=== PATIENT | female | born 1945 | race Caucasian/White ===

== ENCOUNTER 2024-01-24 10:34 | Emergency (ER) | payer BC, MEDICARE ==
[2024-01-24 10:47] LABS: Glucose,Whole Blood 145 mg/dL (70-110)
--- NOTE | 2024-01-24 10:48 | ED ---
General Adult HPI - General Chief complaint: Altered Mental Status Stated complaint: Unresponsive Time Seen by Provider: 01/24/24 10:37 Source: EMS, RN notes reviewed Mode of arrival: EMS Limitations: altered mental status, physical limitation - History of Present Illness Initial comments: Patient is a 78-year-old female presenting to the emergency department with concern for change in mental status. History is limited. Patient is nonverbal. Patient reportedly last known well around 8 AM. Unclear if there was a witnessed event. Patient does have history of atrial fibrillation and is on Eliquis - Related Data Home Medications Medication Instructions Recorded Confirmed Albuterol Inhaler [Ventolin Hfa 1 - 2 puff INHALATION RT-Q4H PRN 01/24/24 01/24/24 Inhaler] Apixaban [Eliquis] 5 mg PO BID 01/24/24 01/24/24 Aspirin EC [Ecotrin Low Dose] 81 mg PO DAILY 01/24/24 01/24/24 Cholecalciferol (Vitamin D3) 100 mcg PO DAILY 01/24/24 01/24/24 [Vitamin D3 (50 Mcg = 2000 Iu)] Famotidine [Pepcid] 20 mg PO DAILY 01/24/24 01/24/24 Levothyroxine Sodium [Synthroid] 175 mcg PO SUTUWETHSA 01/24/24 01/24/24 Levothyroxine Sodium [Synthroid] 350 mcg PO MOFR 01/24/24 01/24/24 Magnesium Oxide [Magox 400] 400 mg PO BID 01/24/24 01/24/24 Melatonin 6 mg PO HS 01/24/24 01/24/24 Potassium Chloride [Klor-Con 20 60 meq PO DAILY 01/24/24 01/24/24 Packets] Rosuvastatin [Crestor] 20 mg PO HS 01/24/24 01/24/24 Tums Ultra Strength 1000mg 1,000 mg PO ACHS 01/24/24 01/24/24 calcitrioL [Rocaltrol] 0.5 mcg PO DAILY 01/24/24 01/24/24 metOLazone [Zaroxolyn] 2.5 mg PO Q48H 01/24/24 01/24/24 traZODone HCL [Desyrel] 25 mg PO HS 01/24/24 01/24/24 Allergies Allergy/AdvReac Type Severity Reaction Status Date / Time No Known Allergies Allergy Verified 01/24/24 11:57 Review of Systems ROS Statement: Those systems with pertinent positive or pertinent negative responses have been documented in the HPI. ROS Other: All systems not noted in ROS Statement are negative. Limitations: ROS unobtainable due to patients medical condition Past Medical History Past Medical History: Atrial Fibrillation, Thyroid Disorder (Anaplastic thyroid cancer) General Exam Limitations: altered mental status General appearance: other (Patient is drowsy and restless. Patient does arouse somewhat to voice. Patient does move all extremities) Head exam: Present: atraumatic Eye exam: Present: normal appearance, PERRL ENT exam: Present: normal oropharynx Neck exam: Present: normal inspection. Absent: tenderness Respiratory exam: Present: normal lung sounds bilaterally Cardiovascular Exam: Present: irregular rhythm Expanded Peripheral pulses: 2+: Radial (R), Radial (L), Dorsalis Pedis (R), Dorsalis Pedis (L) GI/Abdominal exam: Present: soft. Absent: tenderness Extremities exam: Present: normal inspection Neurological exam: Present: altered, other (Nonverbal, somewhat restless, moves all extremities) Psychiatric exam: Present: other (Nonverbal, somewhat restless) Skin exam: Present: normal color Course Vital Signs 01/24/24 01/24/24 01/24/24 10:36 11:00 11:15 Pulse Rate 71 78 82 Respiratory 18 18 19 Rate Blood Pressure 155/117 187/81 157/99 O2 Sat by Pulse 97 100 100 Oximetry Fraction of Inspired Oxygen (FIO2) 01/24/24 01/24/24 01/24/24 11:45 12:00 12:30 Pulse Rate 80 79 89 Respiratory 18 18 18 Rate Blood Pressure 195/106 160/138 204/118 O2 Sat by Pulse 100 98 100 Oximetry Fraction of Inspired Oxygen (FIO2) 01/24/24 01/24/24 01/24/24 12:45 13:15 13:19 Pulse Rate 108 H 78 Respiratory 18 18 Rate Blood Pressure 224/104 112/57 O2 Sat by Pulse 99 100 Oximetry Fraction of 100 Inspired Oxygen (FIO2) 01/24/24 01/24/24 01/24/24 13:26 13:30 13:45 Pulse Rate 78 71 Respiratory 18 18 Rate Blood Pressure 226/84 195/97 O2 Sat by Pulse 100 Oximetry Fraction of 100 Inspired Oxygen (FIO2) 01/24/24 01/24/24 14:00 14:15 Pulse Rate 67 55 L Respiratory 18 18 Rate Blood Pressure 170/87 155/60 O2 Sat by Pulse 100 100 Oximetry Fraction of Inspired Oxygen (FIO2) - Reevaluation(s) Reevaluation #1: 01/24/24 10:46 Patient had generalized tonic-clonic seizure activity in the emergency department lasting 1 to 1-1/2 minutes EKG Findings - EKG Results: EKG: interpreted by ERMD (Septal Q waves), normal axis, normal ST/T EKG shows: atrial fibrillation Procedures - ABG Interpretation Ph: 7.46 PCO2: 46 PO2: 337 - Intubation Sedative: Propofol Paralytic: Succinylcholine Mg Given: 120 Laryngoscope: Ferreira Size: 3 ET Tube Size: 8 Tube Placement Confirmation: visualized tube passing through cords, equal breath sounds bilaterally, no breath sounds over epigastrium, confirmation by capnometry Patient Tolerated Procedure: well, no complications Medical Decision Making - Medical Decision Making Was pt. sent in by a medical professional or institution (, PA, [employer] TEACHER, urgent care, hospital, or fdc...) When possible be specific @ -[No] Did you speak to anyone other than the patient for history (EMS, parent, family, police, friend...)? What history was obtained from this source @ -EMS provides history as patient was unresponsive when she arrives Did you review nursing and triage notes (agree or disagree)? Why? @ -[I reviewed and agree with nursing and triage notes] Were old charts reviewed (outside hosp., previous admission, EMS record, old EKG, old radiological studies, urgent care reports/EKG's, fdc records)? Report findings @ -[No old charts were reviewed] Differential Diagnosis (chest pain, altered mental status, abdominal pain women, abdominal pain men, vaginal bleeding, weakness, fever, dyspnea, syncope, headache, dizziness, GI bleed, back pain, seizure, CVA, palpatations, mental h ealth, musculoskeletal)? @ -Differential Seizure: Recurrent seizure disorder, febrile seizure, alcohol withdrawal, stimulants, meningitis, encephalitis, intercranial hemorrhage, intracranial tumor, stroke, eclampsia, thyrotoxicosis, hypocalcemia, hyponatremia, hypernatremia, hypomagnesemia, psychogenic, this is not meant to be an all-inclusive list. EKG interpreted by me (3pts min.). @ -[As above] X-rays interpreted by me (1pt min.). @ -Chest x-ray shows no acute process cardiomegaly. Chest x-ray following intubation shows endotracheal tube in appropriate position. No acute process. CT interpreted by me (1pt min.). @ -CT scan of the brain shows no bleed or mass effect. U/S interpreted by me (1pt. min.). @ -[None done] What testing was considered but not performed or refused? (CT, X-rays, U/S, labs)? Why? @ -[None] What meds were considered but not given or refused? Why? @ -[None] Did you discuss the management of the patient with other professionals (professionals i.e. , PA, [employer] TEACHER, lab, RT, psych nurse, mental health social worker, quill cleaner, teacher, sales and service officer, protective services case worker)? Give summary @ -Case was discussed with Dr. Herring who did come evaluate the patient Was smoking cessation discussed for >3mins.? @ -[No] Was critical care preformed (if so, how long)? @ -80 minutes critical care time Were there social determinants of health that impacted care today? How? (Homelessness, low income, unemployed, alcoholism, drug addiction, transportation, low edu. Level, literacy, decrease access to med. care, halfway, rehab)? @ -[No] Was there de-escalation of care discussed even if they declined (Discuss DNR or withdrawal of care, Hospice)? DNR status @ -[No] What co-morbidities impacted this encounter? (DM, HTN, Smoking, COPD, CAD, Cancer, CVA, ARF, Chemo, Hep., AIDS, mental health diagnosis, sleep apnea, morbid obesity)? @ -History of thyroid cancer Was patient admitted / discharged? Hospital course, mention meds given and route, prescriptions, significant lab abnormalities, going to OR and other pertinent info. @ -78-year-old female presents from home with change in mental status, unclear onset. Patient had 1 minute seizure on arrival. Following this patient had 8 minutes of seizure. Following this patient had prolonged seizure lasting almost an hour. Patient was intubated. Patient has received a total of 1500 Keppra, 7 Ativan, 1500 Dilantin and is currently on propofol drip. Neurology does recommend transfer secondary to being unable to perform 24-hour EEG as well as need for MRI while intubated. Family does arrive and is updated. They had that patient does have history of thyroid cancer. Thyroid studies have been added Undiagnosed new problem with uncertain prognosis? @ -[No] Drug Therapy requiring intensive monitoring for toxicity (Heparin, Nitro, Insulin, Cardizem)? @ -[No] Were any procedures done? @ -Intubation, see above Diagnosis/symptom? @ -Status epilepticus Acute, or Chronic, or Acute on Chronic? @ -Acute Uncomplicated (without systemic symptoms) or Complicated (systemic symptoms)? @ -Complicated with concern for patient not protecting her airway and patient was intubated Side effects of treatment? @ -[No] Exacerbation, Progression, or Severe Exacerbation? @ -[No] Poses a threat to life or bodily function? How? (Chest pain, [place], [place], pneumonia, PE, COPD, DKA, ARF, appy, cholecystitis, CVA, Diverticulitis, Homicidal, Suicidal, threat to staff... and all critical care pts) @ -Threat to neurological function Case was discussed with transfer team at [facility] who is unable to accept patient secondary to limitations with EEG Case discussed with and at [facility], case also discussed with Dr. Medina who will accept transfer. Family updated - Lab Data Result diagrams: 01/24/24 10:53 01/24/24 12:01 Lab Results 01/24/24 01/24/24 01/24/24 Range/Units 10:46 10:53 10:53 WBC 9.5 (3.8-10.6) k/uL RBC 4.18 (3.80-5.40) m/uL Hgb 12.9 (11.4-16.0) gm/dL Hct 39.3 (34.0-46.0) % MCV 94.0 (80.0-100.0) fL MCH 30.9 (25.0-35.0) pg MCHC 32.9 (31.0-37.0) g/dL RDW 13.9 (11.5-15.5) % Plt Count 131 L (150-450) k/uL MPV 10.5 Neutrophils % 79 % Lymphocytes % 15 % Monocytes % 4 % Eosinophils % 1 % Basophils % 1 % Neutrophils # 7.6 (1.3-7.7) k/uL Lymphocytes # 1.4 (1.0-4.8) k/uL Monocytes # 0.4 (0-1.0) k/uL Eosinophils # 0.1 (0-0.7) k/uL Basophils # 0.1 (0-0.2) k/uL PT 11.2 (10.0-12.5) sec INR 1.0 (<1.2) APTT 22.2 (22.0-30.0) sec Sample Site ABG pH (7.35-7.45) ABG pCO2 (35-45) mmHg ABG pO2 (83-108) mmHg ABG HCO3 (21-25) mmol/L ABG Total CO2 (19-24) mmol/L ABG O2 Saturation (94-97) % ABG Base Excess mmol/L Elías Test FiO2 % Sodium (137-145) mmol/L Potassium (3.5-5.1) mmol/L Chloride (98-107) mmol/L Carbon Dioxide (22-30) mmol/L Anion Gap mmol/L BUN (7-17) mg/dL Creatinine (0.52-1.04) mg/dL Est GFR (CKD-EPI)AfAm (>60 ml/min/1.73 sqM) Est GFR (CKD-EPI)NonAf (>60 ml/min/1.73 sqM) Glucose (74-99) mg/dL POC Glucose (mg/dL) 145 H (70-110) mg/dL POC Glu Sports Commentator ID Sulma Chacon Calcium (8.4-10.2) mg/dL Total Bilirubin (0.2-1.3) mg/dL AST (14-36) U/L ALT (4-34) U/L Alkaline Phosphatase (38-126) U/L Troponin I (0.000-0.034) ng/mL Total Protein (6.3-8.2) g/dL Albumin (3.5-5.0) g/dL 01/24/24 01/24/24 01/24/24 Range/Units 12:01 12:01 14:08 WBC (3.8-10.6) k/uL RBC (3.80-5.40) m/uL Hgb (11.4-16.0) gm/dL Hct (34.0-46.0) % MCV (80.0-100.0) fL MCH (25.0-35.0) pg MCHC (31.0-37.0) g/dL RDW (11.5-15.5) % Plt Count (150-450) k/uL MPV Neutrophils % % Lymphocytes % % Monocytes % % Eosinophils % % Basophils % % Neutrophils # (1.3-7.7) k/uL Lymphocytes # (1.0-4.8) k/uL Monocytes # (0-1.0) k/uL Eosinophils # (0-0.7) k/uL Basophils # (0-0.2) k/uL PT (10.0-12.5) sec INR (<1.2) APTT (22.0-30.0) sec Sample Site r rad ABG pH 7.47 H (7.35-7.45) ABG pCO2 46 H (35-45) mmHg ABG pO2 337 H (83-108) mmHg ABG HCO3 33 H (21-25) mmol/L ABG Total CO2 35 H (19-24) mmol/L ABG O2 Saturation 100.6 H (94-97) % ABG Base Excess 8.4 mmol/L Elías Test Yes FiO2 100 % Sodium 139 (137-145) mmol/L Potassium 4.2 (3.5-5.1) mmol/L Chloride 99 (98-107) mmol/L Carbon Dioxide 34 H (22-30) mmol/L Anion Gap 6 mmol/L BUN 23 H (7-17) mg/dL Creatinine 0.94 (0.52-1.04) mg/dL Est GFR (CKD-EPI)AfAm 68 (>60 ml/min/1.73 sqM) Est GFR (CKD-EPI)NonAf 59 (>60 ml/min/1.73 sqM) Glucose 160 H (74-99) mg/dL POC Glucose (mg/dL) (70-110) mg/dL POC Glu Sports Commentator ID Calcium 11.8 H (8.4-10.2) mg/dL Total Bilirubin 1.1 (0.2-1.3) mg/dL AST 33 (14-36) U/L ALT 16 (4-34) U/L Alkaline Phosphatase 55 (38-126) U/L Troponin I 0.081 H* (0.000-0.034) ng/mL Total Protein 7.0 (6.3-8.2) g/dL Albumin 4.4 (3.5-5.0) g/dL Critical Care Time Critical Care Time: Yes Total Critical Care Time: 80 Disposition Clinical Impression: Status epilepticus Disposition: OTHER INSTITUTION NOT DEFINED Instructions (If sedation given, give patient instructions): Seizure/Epilepsy Discharge Instructions & Follow-Up Is patient prescribed a controlled substance at d/c from ED?: No Referrals: Alyssa Cormier MD [REFERRING] - 1-2 days Time of Disposition: 14:34 - Out of Hospital Transfer - Req. Specs Out of Hospital Transfer - Requested Specifics: Other Emergency Center
[2024-01-24] MEDS: LORazepam 2 MG/ML INJ IV STA ×5 (10:52→15:43)
--- NOTE | 2024-01-24 11:25 | XR ---
EXAMINATION TYPE: XR chest 1V portable DATE OF EXAM: 01/24/2024 COMPARISON: NONE HISTORY: Altered mental status TECHNIQUE: Single frontal view of the chest is obtained. FINDINGS: There is marked cardiomegaly but the pulmonary vasculature is not appear congested. There is no airspace consolidation. There is no pneumothorax. Small pleural effusion on the left lanny ot be excluded due to the technique. IMPRESSION: Marked cardiomegaly without overt CHF.
[2024-01-24 11:32] LABS: Basophils # (A) 0.1 k/uL (0-0.2); Basophils % (A) 1 %; Eosinophils # (A) 0.1 k/uL (0-0.7); Eosinophils % (A) 1 %; HCT 39.3 % (34.0-46.0); HGB 12.9 gm/dL (11.4-16.0); Lymphocytes # (A) 1.4 k/uL (1.0-4.8); Lymphocytes % (A) 15 %; MCH 30.9 pg (25.0-35.0); MCHC 32.9 g/dL (31.0-37.0); Mean Platelet Volume 10.5; Monocytes # (A) 0.4 k/uL (0-1.0); Monocytes % (A) 4 %; Neutrophils # (A) 7.6 k/uL (1.3-7.7); Neutrophils % (A) 79 %; Platelet Count 131 k/uL (150-450); RBC 4.18 m/uL (3.80-5.40); RDW 13.9 % (11.5-15.5); WBC 9.5 k/uL (3.8-10.6)
--- NOTE | 2024-01-24 11:38 | CT ---
EXAMINATION TYPE: CT brain wo con DATE OF EXAM: 01/24/2024 COMPARISON: None HISTORY: ams CT DLP: 1180.6 mGycm Automated exposure control for dose reduction was used. Findings: The ventricles, basal cisterns and sulci over the convexities are within normal limits and there is n o mass effect or shift of midline structures. No abnormal density is seen throughout the brain parenchyma and there is no acute intra or extra-axia l hemorrhage. The posterior fossa including the brainstem, fourth ventricle and cerebellar pontine angles appear no rmal. Intraorbital contents appear normal and symmetric. There is mild inflammatory change in the sphenoid sinus. The mastoid air cells are well aerated. The calvarium is intact. IMPRESSION: No acute bleed or mass effect.
[2024-01-24 11:48] LABS: Partial Thromboplastin Time 22.2 sec (22.0-30.0)
[2024-01-24 12:18] LABS: ALT 16 U/L (4-34); African American GFR (CKD) 68 (>60 ml/min/1.73 sqM); Albumin 4.4 g/dL (3.5-5.0); Anion Gap 6 mmol/L; Blood Urea Nitrogen 23 mg/dL (7-17); Calcium 11.8 mg/dL (8.4-10.2); Carbon Dioxide 34 mmol/L (22-30); Chloride 99 mmol/L (98-107); Glucose 160 mg/dL (74-99); Non-African American GFR(CKD) 59 (>60 ml/min/1.73 sqM); Sodium 139 mmol/L (137-145); Total Bilirubin 1.1 mg/dL (0.2-1.3)
[2024-01-24] MEDS: levETIRAcetam IV 500 MG/5 ML VIAL IVP STA ×3 (12:21→12:47)
[2024-01-24 12:22] LABS: AST 33 U/L (14-36); Alkaline Phosphatase 55 U/L (38-126); Potassium 4.2 mmol/L (3.5-5.1)
[2024-01-24 12:46] LABS: Prothrombin Time 11.2 sec (10.0-12.5)
[2024-01-24] MEDS ORDERED: LORazepam 2 MG/ML INJ IV PRN ×2 (13:18)
[2024-01-24] MEDS ORDERED: IPRATROPIUM-ALBUTEROL 3 ML NEB INHALATION PRN (13:18)
[2024-01-24] MEDS: SUCCINYLCHOLINE CHLORIDE 200 MG/10 ML VIAL IV STA (13:19)
--- NOTE | 2024-01-24 13:39 | XR ---
EXAMINATION TYPE: XR chest 1V portable DATE OF EXAM: 01/24/2024 COMPARISON: 01/16/2024 HISTORY: Tube placement TECHNIQUE: Single frontal view of the chest is obtained. FINDINGS: There is an ET tube approximately 2.3 cm above the hallie. There is marked cardiomegaly. No pneumothorax or definite large pleural effusion. The pulmonary vasculature appears mildly congeste d. IMPRESSION: ET tube 2.3 cm above the hallie. IMPRESSION: No acute process.
[2024-01-24] MEDS: PHENYTOIN SODIUM INJ 1,500 MG in SODIUM CHLORIDE 0.9% 100 ML IVPB STA (13:51)
[2024-01-24] MEDS: SODIUM CHLORIDE 0.9% 1,000 ML IV STA (13:53)
[2024-01-24] MEDS: PHENYTOIN SODIUM INJ 1,000 MG in SODIUM CHLORIDE 0.9% 100 ML IVPB STA (14:02)
[2024-01-24 14:12] LABS: ABG Base Excess 8.4 mmol/L; ABG HCO3 33 mmol/L (21-25); ABG Oxygen Saturation 100.6 % (94-97); ABG PCO2 46 mmHg (35-45); ABG PH 7.47 (7.35-7.45); ABG PO2 337 mmHg (83-108); ABG TCO2 35 mmol/L (19-24); Allen Test Performed? Yes
--- NOTE | 2024-01-24 14:33 | P.CNNES ---
History of Present Illness Consult date: 01/24/24 Requesting physician: Stewart Sood Reason for Consult: Status History of Present Illness: Patient is a 78-year-old right-handed female with history of atrial fibrillation, hypertension, hyperlipidemia anaplastic carcinoma of the thyroid gland, status postchemotherapy, was brought to the hospital by ambulance today at 10:34 AM with new onset seizure. Patient's daughter was present, who provided with a history. Patient's daughter mentions that her dad (patient's ) had informed her that she got up at 8 AM and went to the bathroom as usual. At 9:15 AM she started shaking. Her got concerned if she was having a seizure or stroke. He called her daughters and then called the ambulance and was brought to the hospital. EMS flowsheet not available in the chart. Vital signs on arrival blood pressure 155/117, which came up to 187/81 and then 157/99. Pulse rate 71. Temperature not been checked yet. Blood test shows normal CBC, PT PTT, normal electrolytes, BUN 23 creatinine 0.94. Hepatic panel is normal. Troponin is mildly elevated 0.081. Patient had a EKG, which showed atrial fibrillation, possible right ventricular conduction delay. Chest x-ray showed mild cardiomegaly without overt CHF. CT head showed no acute process. I personally reviewed CT head, agree with the findings. At 10:46 AM, patient had a generalized tonic-clonic seizure activity in the ER lasted for about 1 to 1-1/2 minutes. Patient was given Ativan 1 mg IV. Patient then went into status epilepticus at 12:36 PM when the seizure lasted for 9 minutes. Patient was given Ativan 2 mg IV, which aborted the seizure. However it reappeared at 10:52 AM and lasted for about 5 to 6 minutes. She received an other 2 mg of Ativan (now total of 5 mg). Patient is obtunded. Patient continued to have low-grade seizure activity with movement of her abdominal muscles, right leg, eye twitching and got worse at 12:48 PM. I came to see this patient, and patient is in continuous convulsive status epilepticus. Please refer to examination below. It involves the eye region, abdominal muscles, and right leg. Patient has received Keppra 1500 mg IV already. Patient was intubated, started on propofol 15 mcg/kg/min. The dose was rapidly increased and titrated to 50 mcg/kg/min. Dilantin full loading dose has already been ordered for 1500 mg IV x 1 dose. Patient continues to have status epilepticus. 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 As per report from patient's neurosurgeon Dr. 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 Speech to treat lesion has mixed density lesion within the sella. With her chemotherapy, this pituitary lesion reduced in size, which may be related to immunotherapy and/or reduction in hypophysitis. Patient did not have any visual complaints. Patient had a CT of chest and neck performed on 09/02/2023, which revealed stable findings. Patient's daughter mentions that in June 2022, patient was walking when she fell, suffered from "2 brain bleeds". She was taken to [facility]. She was placed on Keppra only for 3 days and then was discontinued. The intracranial hemorrhage was treated conservatively. No previous history of tobacco or alcohol use. Patient does have hypertension but no diabetes. Review of Systems Patient has been otherwise healthy, does use a walker for ambulation. Had no complaints prior to started having seizures. ROS unobtainable: due to mental status Past Medical History Past Medical History: Atrial Fibrillation, Thyroid Disorder (Anaplastic thyroid cancer) Medications and Allergies Home Medications Medication Instructions Recorded Confirmed Type Albuterol Inhaler [Ventolin Hfa 1 - 2 puff INHALATION RT-Q4H PRN 01/24/24 01/24/24 History Inhaler] Apixaban [Eliquis] 5 mg PO BID 01/24/24 01/24/24 History Aspirin EC [Ecotrin Low Dose] 81 mg PO DAILY 01/24/24 01/24/24 History Cholecalciferol (Vitamin D3) 100 mcg PO DAILY 01/24/24 01/24/24 History [Vitamin D3 (50 Mcg = 2000 Iu)] Famotidine [Pepcid] 20 mg PO DAILY 01/24/24 01/24/24 History Levothyroxine Sodium [Synthroid] 175 mcg PO SUTUWETHSA 01/24/24 01/24/24 History Levothyroxine Sodium [Synthroid] 350 mcg PO MOFR 01/24/24 01/24/24 History Magnesium Oxide [Magox 400] 400 mg PO BID 01/24/24 01/24/24 History Melatonin 6 mg PO HS 01/24/24 01/24/24 History Potassium Chloride [Klor-Con 20 60 meq PO DAILY 01/24/24 01/24/24 History Packets] Rosuvastatin [Crestor] 20 mg PO HS 01/24/24 01/24/24 History Tums Ultra Strength 1000mg 1,000 mg PO ACHS 01/24/24 01/24/24 History calcitrioL [Rocaltrol] 0.5 mcg PO DAILY 01/24/24 01/24/24 History metOLazone [Zaroxolyn] 2.5 mg PO Q48H 01/24/24 01/24/24 History traZODone HCL [Desyrel] 25 mg PO HS 01/24/24 01/24/24 History Allergies Allergy/AdvReac Type Severity Reaction Status Date / Time No Known Allergies Allergy Verified 01/24/24 11:57 Physical Examination - Vital Signs Vital Signs: Vital Signs Pulse Resp BP Pulse Ox FiO2 01/24/24 13:26 100 01/24/24 13:19 100 01/24/24 12:30 89 18 204/118 100 01/24/24 12:00 79 18 160/138 98 01/24/24 11:45 80 18 195/106 100 01/24/24 11:15 82 19 157/99 100 01/24/24 11:00 78 18 187/81 100 01/24/24 10:36 71 18 155/117 97 Intake and Output 01/23/24 01/24/24 01/24/24 22:59 06:59 14:59 Intake Total 3.206 Balance 3.206 Intake: Intake, IV Titration 3.206 Amount propofoL 1,000 mg In 3.206 Empty Bag 1 bag @ 15 MCG/ KG/MIN 7.398 mls/hr IV . [id number] [facility] Rx#:[id number] Other: Weight 82.2 kg Patient is an elderly female, and currently in status epilepticus. Patient is comatose, unresponsive to calling her name, or with painful stimuli. Patient has already, received Ativan 5 mg, and Keppra 1500 mg in the ER, which may be contributing as well. Patient is having continuous clonic activity involving the eye, facial region, also abdominal region, and right leg. No convulsive activity noted in the left leg or any clear involvement of the arms. On cranial nerve examination, pupils are equal, round and not clearly reactive to light. Oculocephalics are absent. Corneals are absent. Lower cranial nerves cannot be assessed. Tone of muscles is equal. Reflexes are trace to 1, and plantars are flat. Tone is equal bilaterally. Patient is having constant focal tremoring of the right leg but not the left. On general examination, there is no carotid bruit or murmur, S1-S2 audible. Chest is clear on consultation. Abdomen is soft nontender. No organomegaly, bowel sounds present. Peripheral pulses are present. No peripheral edema. Results - Laboratory Findings CBC and BMP: 01/24/24 10:53 01/24/24 12:01 Abnormal Lab Findings: Abnormal Labs 01/24/24 01/24/24 01/24/24 10:46 10:53 12:01 Plt Count 131 L Carbon Dioxide BUN Glucose POC Glucose (mg/dL) 145 H Calcium Troponin I 0.081 H* 01/24/24 12:01 Plt Count Carbon Dioxide 34 H BUN 23 H Glucose 160 H POC Glucose (mg/dL) Calcium 11.8 H Troponin I Assessment and Plan Assessment: * Status epilepticus, focal with generalization. * New onset seizures as above. * History of intracranial hemorrhage June 2022, treated conservatively. Patient was not on any AED. * History of metastatic anaplastic thyroid cancer, in remission as per last CT of the neck and chest. * Atrial fibrillation, on anticoagulation with Eliquis. * Hypertension * Hyperlipidemia * Hypothyroidism * Obesity * Peripheral arterial disease Plan: * Patient is currently in active status epilepticus. This probably focal onset, as it involves the right leg (not the left leg) has secondary generalization with involvement of the abdominal muscles and facial region * Patient has received Ativan 5 mg, Keppra 1500 mg, started on propofol, currently running at 50 mcg/kg/min. * Patient continues to have status. Awaiting Dilantin 1500 mg x 1 dose, to be infused once arrived from the pharmacy. * If the seizures persist, would recommend Versed drip. * CT head revealed no acute process. Patient probably will need MRI of the brain with and without contrast to rule out any metastatic disease. No obvious metastasis noted on CT head. * Start acyclovir 10 mg/kg every 8 hours empirically. * Patient may need lumbar puncture. * Stat EEG * Patient probably will need continuous EEG monitoring, which is not available in our facility. * Recommend transfer to higher level of care for continuous EEG monitoring. * Patient is critically sick. Discussed with patient's daughters in detail. Patient's daughter consented for intubation. * Regarding atrial fibrillation and DVT prophylaxis, consider Lovenox anticoagulant dose, until patient able to take Eliquis. * Also discussed with ED staff multiple times. Dr. Hernandez starting neurology service from Thursday morning. * Thank you for the consult. Time with Patient: Greater than 30
[2024-01-24 15:13] VITALS: RESP 20
[2024-01-24 15:37] LABS: Appearance,Urine Clear (Clear); Bilirubin,Urine Negative (Negative); Blood,Urine Small (Negative); Color,Urine Light Yellow; Glucose,Urine (UA) 1+ (Negative); Granular Casts,Urine 9 /lpf (0); Hyaline Casts,Urine 7 /lpf (0-2); Ketones,Urine Negative (Negative); Leukocyte Esterase,Urine Negative (Negative); Mucus,Urine Rare /hpf; Nitrite,Urine Negative (Negative); PH, Urine 5.5 (5.0-8.0); Protein,Urine 2+ (Negative); RBC,Urine 1 /hpf (0-5); Specific Gravity,Urine 1.016 (1.001-1.035); Squamous Epithelial Cell,Urine <1 /hpf (0-4); Urobilinogen,Urine <2.0 mg/dL (<2.0); WBC,Urine 4 /hpf (0-5); White Blood Cell Casts,Urine 5 /lpf (0)
[2024-01-24 15:40] LABS: Amphetamine Screen,Urine Not Detected (NotDetected); Barbiturate Screen,Urine Not Detected (NotDetected); Benzodiazepines Screen,Urine Detected (NotDetected); Cocaine Screen,Urine Not Detected (NotDetected); Methadone Screen, Urine Not Detected (NotDetected); Opiate Screen,Urine Not Detected (NotDetected); Oxycodone Screen, Urine Not Detected (NotDetected); Phencyclidine Screen,Urine Not Detected (NotDetected); Tricyclic Antidepressant,Urine Not Detected (NotDetected); Urn Cannabinoid Scrn Not Detected (NotDetected)
[2024-01-24 15:55] VITALS: BP 165/74; PULSE 52
[2024-01-24 16:18] LABS: T4, Free (Free Thyroxine) 3.4 ng/dL (0.78-2.19)
[2024-01-24] MEDS ORDERED: levETIRAcetam IV 500 MG/5 ML VIAL IVP SCH (21:00)
== END 2024-01-24 15:59 | disposition other institution (70) ==
LOC: EC 10:34
DX: G40.901 Epilepsy, unspecified, not intractable, with status epilepticus (principal); E89.0 Postprocedural hypothyroidism; Z86.73 Personal history of transient ischemic attack (TIA), and cerebral infarction without residual deficits
CPT/HCPCS: 36415; 36600; 94002; 93005; 84439; 84481; 80053; 82805; 84443; 84484; 85025; 85610; 85730; 81001; 80306; 87070; 87205; 71045; 70450; 99291; 99292; 96365; 96367; 96366; 96375 ×3; 96376 ×3; 31500; J0330; J2060; J1165; J1953; J2704